=== PATIENT | female | born 1980 | race Caucasian/White ===

== ENCOUNTER 2017-01-06 10:31 | Emergency (ER) | payer BC ==
[2017-01-06] MEDS ORDERED: Lidocaine 1% MPF* 2 ML VIAL INJ ONE (11:57)
[2017-01-06 12:32] VITALS: BP 130/82
--- NOTE | 2017-01-06 12:44 | ED ---
Skin Complaint - HPI Summary HPI Summary: Patient presents with a nail avulsion to the right great toe after kicking the stairs accidentally. Minimal blood loss. The medial side of the nail is dislodged with the lateral side still attached at the base. She denies pain in the toe, but endorses pain in the nail bed. She denies other injuries. Pain is 5/10, intermittent and worse with palpation. She has never injured the toe before, is not immunocompromised, takes no medications, no hx of gout and no hx of skin infections or diabetes. - History of Current Complaint Chief Complaint: EDExtremityLower Time Seen by Provider: 01/06/17 10:52 Stated Complaint: RT TOENAIL INJURY Hx Obtained From: Patient Onset/Duration: Started Hours Ago Skin Exposure Onset/Duration: Hours Ago Timing: Constant Onset Severity: Moderate Current Severity: Moderate Pain Intensity: 2 Pain Scale Used: 0-10 Numeric Skin Location: Discrete - right great toe Aggravating Symptom(s): Touch Alleviating Symptom(s): Nothing Associated Signs & Symptoms: Negative Related History: Trauma PMH/Surg Hx/FS Hx/Imm Hx Previously Healthy: Yes - Immunization History Hx Pertussis Vaccination: No Immunizations Up to Date: Unable to Obtain/Confirm Infectious Disease History: No Infectious Disease History: Denies: Traveled Outside the [place] in Last 30 Days - Social History Occupation: Employed Full-time Lives: With Family Alcohol Use: Rare Hx Substance Use: No Substance Use Type: Reports: None Hx Tobacco Use: No Smoking Status (MU): Never Smoked Tobacco Review of Systems Constitutional: Negative Negative: Fever, Chills, Fatigue Cardiovascular: Negative Respiratory: Negative Positive: no symptoms reported, see HPI Musculoskeletal: Negative Positive: Other - avulsion to the nail of the right great toe Neurological: Negative Psychological: Normal All Other Systems Reviewed And Are Negative: Yes Physical Exam Triage Information Reviewed: Yes Vital Signs On Initial Exam: Initial Vitals Temp Pulse Resp BP Pulse Ox 98.0 F 78 16 134/76 98 01/06/17 10:41 01/06/17 10:41 01/06/17 10:41 01/06/17 10:41 01/06/17 10:41 Vital Signs Reviewed: Yes Appearance: Positive: Well-Appearing, Well-Nourished Skin: Positive: Warm, Skin Color Reflects Adequate Perfusion, Other - avulsion to the right great toe Head/Face: Positive: Normal Head/Face Inspection Eyes: Positive: EOMI, DAVID, Conjunctiva Clear Respiratory/Lung Sounds: Positive: Clear to Auscultation, Breath Sounds Present Cardiovascular: Positive: RRR, Pulses are Symmetrical in both Upper and Lower Extremities Musculoskeletal: Positive: Strength/ROM Intact Neurological: Positive: Speech Normal Psychiatric: Positive: Normal Diagnostics - Vital Signs Vital Signs Temp Pulse Resp BP Pulse Ox 01/06/17 12:31 98 F 63 16 130/82 01/06/17 10:41 98.0 F 78 16 134/76 98 - Laboratory Lab Statement: Any lab studies that have been ordered have been reviewed, and results considered in the medical decision making process. Course/Dx - Course Course Of Treatment: Patient is evaluated for right great toe avulsion which occurred 1 hour prior to arrival by kicking a staircase. Immediate pain in the base of the nail, but denies pain in the toe. All other toes with good cap refill and pulses are intact bilaterally : pedal and posterior tibial. No pain in the lower leg. Treatment options explained and patient would prefer digital block with nail extraction. Timeout obtained. Cleansed wound. Lidocaine without epi as local anesthetic - 2ml. Digital block at the base of the right great toe. Hemostats used to grab the toenail and dislodged. Patient tolerated well. Base of the nail cut and inserted back into the nail base to allow for regrowth without restriction or angulation of the nail. Cleaned and dressed wound with occlusive gauze and wrapped. NV exam WNL. Return precautions given. Care instructions given. Nail will regrow in 3-6 months. Patient OK with discharge. - Differential Diagnoses - Skin Complaint Differential Diagnoses: Other - nail avulsion, infection, nail removal - Diagnoses Provider Diagnoses: Nail avulsion of toe Discharge - Discharge Plan Condition: Stable Disposition: HOME Patient Education Materials: Nail Removal (ED) Referrals: Non Staff,Doctor [Primary Care Provider] - Additional Instructions: Ibuprofen 600mg three times daily Keep the area covered with occlusive gauze for 2-3 days Then, leave open to air
== END 2017-01-06 12:31 | disposition home or self-care (01) ==
LOC: ED 10:31
DX: S91.201A Unspecified open wound of right great toe with damage to nail, initial encounter (principal); W22.8XXA Striking against or struck by other objects, initial encounter; Y93.9 Activity, unspecified; Y92.9 Unspecified place or not applicable
CPT/HCPCS: 96374; 99281

== ENCOUNTER 2017-09-17 13:48 | Emergency (ER) | payer BC ==
[2017-09-17 14:25] VITALS: BP 139/86
--- NOTE | 2017-09-17 15:18 | UC ---
Throat Pain/Nasal Otilio HPI - HPI Summary HPI Summary: pain in right ear, maxillary sinus and right side of throat--for a couple of days no fevers - History of Current Complaint Hx Obtained From: Patient Hx Last Menstrual Period: only spotting bc of IUD ?: No Onset/Duration: Sudden Onset, Lasting Days - 3 Pain Intensity: 3 Pain Scale Used: 0-10 Numeric Cough: None Associated Signs & Symptoms: Positive: Sinus Discomfort, Nasal Discharge <Alexia Baird - Last Filed: 09/17/17 17:12> <Radha Acosta - Last Filed: 09/17/17 18:58> - History of Current Complaint Chief Complaint: UCGeneralIllness Stated Complaint: FACIAL AND NECK PAIN Time Seen by Provider: 09/17/17 15:17 - Allergies/Home Medications Allergies/Adverse Reactions: Allergies Allergy/AdvReac Type Severity Reaction Status Date / Time Proton Pump Inhibitors Allergy Anaphylatic Verified 09/17/17 14:15 Shock Home Medications: Home Medications Ibuprofen TAB* [Motrin TAB* 400 MG] 400 mg PO Q6H PRN 09/17/17 [History Confirmed 09/17/17] PMH/Surg Hx/FS Hx/Imm Hx Previously Healthy: Yes - Surgical History Surgical History: Yes Surgery Procedure, Year, and Place: L knee arthroscopy x2 - Family History Known Family History: Positive: None - Social History Occupation: Employed Full-time Lives: With Family Alcohol Use: None Substance Use Type: None Smoking Status (MU): Heavy Every Day Tobacco Smoker Amount Used/How Often: 1 PPD Cessation Counseling: Patient Advised to Stop <Alexia Baird - Last Filed: 09/17/17 17:12> Review of Systems Constitutional: Negative Skin: Negative Eyes: Negative ENT: Negative, Sore Throat - right side, Ear Ache - right, Sinus Congestion - right maxillary sinus, Sinus Pain/Tenderness Respiratory: Negative Cardiovascular: Negative Gastrointestinal: Negative Genitourinary: Negative Motor: Negative Neurovascular: Negative Musculoskeletal: Negative Neurological: Negative Psychological: Negative Is Patient Immunocompromised?: No All Other Systems Reviewed And Are Negative: Yes <Alexia Baird - Last Filed: 09/17/17 17:12> Physical Exam Triage Information Reviewed: Yes Appearance: Well-Nourished, Ill-Appearing - mild, Pain Distress - mild Vital Signs: Initial Vital Signs Temp 98.2 F 09/17/17 14:16 Pulse 81 09/17/17 14:16 Resp 16 09/17/17 14:16 BP 139/86 09/17/17 14:16 Pulse Ox 98 09/17/17 14:16 Vital Signs Reviewed: Yes Eye Exam: Normal Eyes: Positive: Conjunctiva Clear ENT Exam: Normal ENT: Positive: Normal ENT inspection, Hearing grossly normal, Pharynx normal, Nasal congestion, TMs normal, Sinus tenderness, Uvula midline. Negative: Tonsillar swelling, Trismus, Muffled voice, Hoarse voice, Dental tenderness Dental Exam: Normal Neck exam: Normal Neck: Positive: Supple, Nontender Respiratory Exam: Normal Respiratory: Positive: Chest non-tender, Lungs clear, Normal breath sounds, No respiratory distress, No accessory muscle use Cardiovascular Exam: Normal Cardiovascular: Positive: RRR, No Murmur, Pulses Normal, Brisk Capillary Refill Musculoskeletal Exam: Normal Musculoskeletal: Positive: Strength Intact, ROM Intact, No Edema Neurological Exam: Normal Neurological: Positive: Alert, Muscle Tone Normal Psychological Exam: Normal Skin Exam: Normal <Alexia Baird - Last Filed: 09/17/17 17:12> Vital Signs: Initial Vital Signs Temp 98.2 F 09/17/17 14:16 Pulse 81 09/17/17 14:16 Resp 16 09/17/17 14:16 BP 139/86 09/17/17 14:16 Pulse Ox 98 09/17/17 14:16 <Radha Acosta - Last Filed: 09/17/17 18:58> Throat Pain/Nasal Course/Dx - Course Assessment/Plan: flonase, mucinex D, tylenol, ibuprofen follow with pcp - Differential Dx/Diagnosis Provider Diagnoses: eustation tube dysfunction <Alexia Baird - Last Filed: 09/17/17 17:12> Discharge - Sign-Out/Discharge Documenting (check all that apply): Discharge/Admit/Transfer - Billing Disposition and Condition Condition: STABLE Disposition: HOME <Alexia Baird - Last Filed: 09/17/17 17:12> - Billing Disposition and Condition Condition: STABLE Disposition: HOME <Radha Acosta - Last Filed: 09/17/17 18:58> - Discharge Plan Condition: Stable Disposition: HOME Prescriptions: Fluticasone NASAL SPRAY 50MCG* [Flonase NASAL SPRAY 50MCG*] 2 spray BOTH NARES DAILY #1 btl Patient Education Materials: Decongestant/Expectorant (By mouth), Barotitis Media (ED) Referrals: [facility] REFERRAL [Outside] - If Needed Attestation Statement User Type: Provider - I was available for consult. This patient was seen by the YESSY. The patient was not presented to, seen by, or examined by me. -Sam <Radha Acosta - Last Filed: 09/17/17 18:58>
== END 2017-09-17 15:34 | disposition home or self-care (01) ==
LOC: UCEAST 13:48
DX: H69.80 Other specified disorders of Eustachian tube, unspecified ear (principal); Z88.8 Allergy status to other drugs, medicaments and biological substances; F17.210 Nicotine dependence, cigarettes, uncomplicated
CPT/HCPCS: 99212; G0463